=== PATIENT | female | born 1975 | race Caucasian/White ===

== ENCOUNTER → 2017-03-18 | Outpatient (CLI) | payer OTHER ==
[~2017-03-18] MED LIST: ACET-1256 PO; CETI10TA84 PO; MULT-513 PO; RANI150T3 PO; [UNRECOGNIZED DRUG - CODE] NAE
--- NOTE | 2017-03-18 16:26 | MAMMOGRAPHY REPORT ---
THIS REPORT HAS BEEN AMENDED. BILATERAL DIGITAL SCREENING MAMMOGRAM TOMOSYNTHESIS WITH CAD: 03/18/2017 CLINICAL HISTORY: Routine screening. Patient has no complaints. TECHNIQUE: Breast tomosynthesis in addition to standard 2D mammography was performed. Current study was also evaluated with a Computer Aided Detection (CAD) system. COMPARISON: Comparison is made to exams dated: 03/15/2016 mammogram, 09/14/2015 ultrasound, 5 mammogram, 03/11/2015 mammogram, 09/08/2014 ultrasound, and 09/08/2014 mammogram - [facility]. BREAST COMPOSITION: The tissue of both breasts is heterogeneously dense, which may obscure small mas ses. FINDINGS: The parenchymal pattern is similar to prior exams. A small 2 mm grouping of faint microcal cifications in the 6:00 versus retroareolar left breast are unchanged dating back to the 09/08/2014 m ammograms, therefore most likely benign. No new suspicious mass, architectural distortion or cluster of new, suspicious microcalcifications is seen. IMPRESSION: ACR BI-RADS CATEGORY 1: NEGATIVE Stable bilateral mammograms, without mammographic evidence of malignancy. A 1 year screening mammogra m is recommended. The patient will receive written notification of the results. Approximately 10% of breast cancers are not detected with mammography. A negative mammographic report should not delay biopsy if a clinically suggestive mass is present. Rhona Arshad M.D. ay/:03/18/2017 15:02:31 Court Monitor: Theresa JULES(Rima)(Hesham), [facility] letter sent: Normal 1/2 BI-RADS Code: ACR BI-RADS Category 1: Negative AMENDMENT: 03/19/2017 Rhona Arshad M.D. After further consideration of the microcalcifications in the left breast I would like to have the pa tient return for additional spot magnification views once again. When comparing back to all [facility] prior mammograms, including spot magnification views dating back to 09/08/2014, the microcalcif ications do not appear significantly increased in number. The overall size of the cluster of the lico rocalcifications also appears unchanged, measuring 2 mm. This length of stability suggests benign ca lcifications. However they are the only microcalcifications seen in either breast and given the foca l discrete nature they remain indeterminate. Given that long-term stability (> 5 years) is not demon strated, additional spot magnification views are recommended. Amended BI-RADS: ACR BI-RADS Category 0: Incomplete Evaluation: Need Additional Imaging Evaluation letter sent: [facility]
== END | disposition home or self-care (01) ==
LOC: C.MAMM 14:31
PROVIDERS: ATTEND Family Medicine
DX: Z12.31 Encounter for screening mammogram for malignant neoplasm of breast (principal)

== ENCOUNTER → 2017-04-17 | Outpatient (CLI) | payer OTHER ==
--- NOTE | 2017-04-17 13:35 | Discharge Instructions ---
Discharge Instructions Procedure Procedure Date: Apr 17, 2017. Reason for visit: Lt Microcalcs. Discharge Discharge Date: Apr 17, 2017. Discharge Diagnosis: post left breast stereotactic guided biopsy Instructions Activity Recommendations: Additional Limitations (see below) Return to School/Work: no limitations Recommended Home Diet: No Limitations Provider Instructions: ACTIVITY RECOMMENDATIONS: * No lifting, pushing, pulling or exercising the affected side for three days. RETURN TO SCHOOL/WORK: * You may return to work/school after the procedure, but do not perform any strenuous activities for 24 to 48 hours. MEDICATIONS: * Tylenol (two 325 mg) every four to six hours if needed for mild pain (if not allergic to Tylenol). DIET: * Resume previous diet. SPECIAL CARE INSTRUCTIONS: * Keep biopsy site dry for 24 hours. May shower after 24 hours, but do not soak (bathe) incision. * May remove Tegaderm (plastic patch) tomorrow AFTER showering. * Leave the steri-strips on for one week. Allow the steri-strips to fall off by themselves. If not off after one week, you may remove them. You may place a Bandaid crosswise over the strips, if desired. * Apply ice 10 minutes on and 10 minutes off as needed. * Wear a bra at bedtime to sleep more comfortably for 2-3 days. * Your referring physician should have the results after approximately 5 to 7 business days. * Call for unusual bleeding, fever, drainage, etc or if you have any questions call [phone] during normal business hours or after hours call Dr Arshad, . FOLLOW UP VISIT: Follow-up with Referring Physician as scheduled. Allergies Coded Allergies: No Known Allergies (Unverified , 08/10/14) Ana Kennedy Recommendations: Call your doctor if: * Temperature above 101 degrees * Pain not relieved by pain medicine ordered * There is increased drainage or redness from any incision * You have any unanswered questions or concerns. Your Doctors Instructions noted above were prepared by provider Rhona Arshad. Patient Signature Section: Patient Instructions Signature Page Paula Leal Patient (or Guardian) Signature/Date: I have read and understand the instructions given to me by my caregivers. Caregiver/RN/Doctor Signature/Date: The above-named patient and/or guardian has received patient instructions on this date. + Original Patient Signature Page (only) stays with chart. Please make copy for patient.
--- NOTE | 2017-04-17 15:43 | MAMMOGRAPHY REPORT ---
STEREOTACTIC GUIDED BIOPSY LEFT BREAST: 04/17/2017 CLINICAL HISTORY: 42-year-old woman with an indeterminate small faint cluster of microcalcifications in the central left breast. These had been previously followed with spot magnification views and joaquin eared stable in 2014 and 2015, but on the most recent mammogram the appeared slightly more conspicuou s and had possible associated nodularity. Patient presents for diagnostic spot magnification views a nd stereotactic guided biopsy. COMPARISON: Comparison is made to exams dated: 03/18/2017 mammogram, 03/15/2016 mammogram, 09/14/2015 ultrasound, 09/14/2015 mammogram, 03/11/2015 mammogram, and 09/08/2014 ultrasound - [facility]. FINDINGS: Prior to the procedure, diagnostic spot magnification left CC and ML views were obtained. There is a small, 2 mm cluster of amorphous microcalcifications in the central left breast, 4 cm dist al to the nipple. When comparing to prior spot magnification views, these are increasingly conspicuo us, which may be in part due to technique. Nevertheless, definitive characterization with a stereota ctic guided biopsy is recommended. PATIENT CONSENT: After explaining the risks, benefits and alternatives of the procedure to the patien t, informed consent was obtained both verbally and in writing. Specific risks include: Bleeding, inf ection, puncture of adjacent structure, pain, nontarget biopsy, sampling error, metal allergy and med ication reaction. PROCEDURE DESCRIPTION: A time-out was performed and the left breast was confirmed as the site of biop sy. The patient was placed prone on the stereotactic biopsy table and the breast was placed in CC fro m above compression. A yarn handler image was obtained that demonstrated the clustered microcalcifications i n question. They are amenable to sterotactic biopsy. Then +15 and -15 stereo pair images were obta ined. The calcifications were targeted utilizing the coordinates obtained by the computer. The skin was prepped with Betadine. 1% Lidocaine with and without epinipherine was administered as local anest hesia. A small skin incision was made. Through the incision, the needle was inserted to the depth de termined by the computer. 5 samples were obtained using a Dogsteriva 9-gauge vacuum-assisted biopsy device. The specimen radiograph demonstrated the cluster of escrow representative microcalcifications, there fore, a metallic marker was placed at the biopsy site. There was no immediate complication. Hemostasi s was achieved after several minutes of manual compression. The samples were sent to pathology in tw o appropriately labeled containers, "with calcifications" and "without calcifications". All of the sa mples were obtained from the same single biopsy site. Postprocedure CC and ML views of the left breast were obtained. There is a new dumbbell-shaped meta llic biopsy marker and no significant hematoma in the 12:00 axis of the left breast, at the site of t he biopsied microcalcifications. IMPRESSION: STEREOTACTIC GUIDED BIOPSY Status post left breast stereotactic guided biopsy of a small cluster of microcalcifications in the c entral breast, with biopsy marker placed at the site. The patient will receive notification of the biopsy results from her referring physician. Rhona Arshad M.D. ay/:04/17/2017 14:38:36 Attending Technologist: Lorraine BOWEN)(Hesham), [facility] Data Entry Technician: Theresa Nathan, [facility]
--- NOTE | 2017-04-17 15:44 | MAMMOGRAPHY REPORT ---
UNILATERAL LEFT DIGITAL DIAGNOSTIC MAMMOGRAM: 04/17/2017 CLINICAL HISTORY: Clustered microcalcifications in the central left breast. Please refer to the report from left breast stereotactic guided biopsy performed at the same time for full detail. IMPRESSION: Please refer to the report from left breast stereotactic guided biopsy performed at the same time for full detail. Approximately 10% of breast cancers are not detected with mammography. A negative mammographic report should not delay biopsy if a clinically suggestive mass is present. Rhona Arshad M.D. ay/:04/17/2017 14:39:47 Tester Operator Helper: Theresa Nathan, [facility] BI-RADS Code: n/a
== END | disposition home or self-care (01) ==
LOC: C.MAMM 12:21
PROVIDERS: ATTEND Family Medicine
DX: R92.0 Mammographic microcalcification found on diagnostic imaging of breast (principal); N60.12 Diffuse cystic mastopathy of left breast

== ENCOUNTER → 2018-05-05 | Outpatient (CLI) | payer OTHER ==
--- NOTE | 2018-05-06 14:44 | MAMMOGRAPHY REPORT ---
BILATERAL DIGITAL SCREENING MAMMOGRAM TOMOSYNTHESIS WITH CAD: 05/05/2018 CLINICAL HISTORY: Routine screening. Patient has no complaints. TECHNIQUE: The study was acquired using full field digital technology and interpreted from soft copy. Breast tomosynthesis in addition to standard 2D mammography was performed. Current study was also ev aluated with a Computer Aided Detection (CAD) system. COMPARISON: Comparison is made to exams dated: 04/17/2017 mammogram, 03/18/2017 mammogram, 03/15/2016 m ammogram, 09/14/2015 mammogram, 03/11/2015 mammogram, and 09/08/2014 mammogram - [facility]. BREAST COMPOSITION: The tissue of both breasts is heterogeneously dense, which may obscure small mass es. FINDINGS: There is a stable metallic biopsy marker clip in the 6:00 left breast, denoting the site of prior benign stereotactic biopsy. No suspicious mass, architectural distortion or cluster of microca lcifications is seen. IMPRESSION: ACR BI-RADS CATEGORY 1: NEGATIVE There is no mammographic evidence of malignancy. A 1 year screening mammogram is recommended.( 019) The patient will receive written notification of the results. Some breast cancers are not detected with mammography. A negative mammographic report should not mauri y biopsy if a clinically suggestive mass is present. Rhona Arsahd M.D. ay/:05/05/2018 17:12:35 Pile Driver Engineer: RT Latrice(Rima)(M), [facility] letter sent: Normal 1/2 BI-RADS Code: ACR BI-RADS Category 1: Negative
== END | disposition home or self-care (01) ==
LOC: C.MAMM 15:36
PROVIDERS: ATTEND Physician Assistant
DX: Z12.31 Encounter for screening mammogram for malignant neoplasm of breast (principal)